=== PATIENT | female | born 2005 | race Caucasian/White ===

== ENCOUNTER 2024-01-13 19:33 | Emergency (ER) | payer BC ==
[~2024-01-13] VITALS: Ht 157.5 cm; Wt 60.0 kg
[2024-01-13 21:43] LABS: BASOPHILS % (AUTO) 0.2 % (0-1); EOSINOPHILS % (AUTO) 0.2 % (0-6); HEMATOCRIT 43.6 % (35.0-45.0); HEMOGLOBIN 14.7 g/dl (12.0-16.0); LYMPHOCYTES % (AUTO) 11.9 % (21-51); MEAN CORPUSCULAR HEMOGLOBIN 29.7 PG (27.0-31.0); MEAN CORPUSCULAR HGB CONC 33.7 g/dL (33.0-36.5); MEAN PLATELET VOLUME 7.4 FL (7.4-10.4); MONOCYTES % (AUTO) 5.9 % (2-12); NEUTROPHILS # (AUTO) 13.8 X10'3 (1.8-7.7); NEUTROPHILS % (AUTO) 81.8 % (42-75); PLATELET COUNT 280 X10'3 (140-440); RED BLOOD COUNT 4.96 X10'6 (4.20-5.60); RED CELL DISTRIBUTION WIDTH 12.4 % (11.5-14.5); WHITE BLOOD COUNT 16.8 X10'3 (4.5-11.0)
[2024-01-13 21:50] LABS: URINE HCG NEGATIVE (NEG)
[2024-01-13 21:51] LABS: ALBUMIN 4.1 G/DL (3.4-5.0); ANION GAP 9 (8-16); BLOOD UREA NITROGEN 11 MG/DL (7-18); BUN/CREATININE RATIO 12.9 (10.0-20.0); CALCIUM 10.2 MG/DL (8.5-10.1); CHLORIDE 101 MMOL/L (99-107); CREATININE 0.85 MG/DL (0.40-0.90); GLUCOSE 114 MG/DL (70-104); POTASSIUM 3.4 MMOL/L (3.5-5.1); SODIUM 137 MMOL/L (135-145); TOTAL CARBON DIOXIDE 27.2 MMOL/L (24-32); eCRCL 84 ML/MIN; eGFR 85 ML/MIN
[2024-01-13] MEDS: acetaminophen 325mg tablet PO ONE (22:13)
[2024-01-13 23:57] VITALS: BP 117/96; PULSE 53; RESP 16; TEMP 98.2; O2SAT 99
== END 2024-01-13 23:59 | disposition home or self-care (01) ==
LOC: ER 19:35
DX: R20.2 Paresthesia of skin (principal); E03.9 Hypothyroidism, unspecified; Z88.2 Allergy status to sulfonamides
CPT/HCPCS: 36415; 80048; 81025; 85025; 93005; 99284